=== PATIENT | female | born 1950 | race Caucasian/White ===

== ENCOUNTER → 2017-05-17 | Outpatient (CLI) | payer OTHER, MEDICARE ==
[~2017-05-17] MED LIST: ASPIRIN325 PO; CARDIZEM CD 18180 M3; CEFDINIR300 MG; DILTIAZEM 24HR240 MG PO; GLUCOSAMIN-CHO1 EACH PO; LEVOFLOXACIN750 MG PO; METOPROLOL; MUCUS DM 600-31 EACH PO; MULTIVITAMINS1 EAC7 PO; PREDNISONE 10 M10 MG PO; PREMPRO 0.3 MG1 EACH PO; PROPAFENONE 15150 MG PO; RED YEAST RICE600 MG PO; REQUIP 1 MG TABL1 M1 PO; SINGULAIR 10 MG10 M1 PO; TOPROL XL50 MG PO; ZYRTEC 10 MG TA10 M1 PO
== END ==
LOC: M.RAD 10:59
DX: Z12.31 Encounter for screening mammogram for malignant neoplasm of breast (principal)

== ENCOUNTER → 2020-09-04 | Outpatient (CLI) | payer OTHER | LOC: M.ULTRA 12:54 | PROVIDERS: ATTEND Family Medicine | DX: I83.93 Asymptomatic varicose veins of bilateral lower extremities (principal); M79.604 Pain in right leg ==

== ENCOUNTER → 2020-10-23 | Outpatient (CLI) | payer OTHER | LOC: M.CT 10-21 13:00 | PROVIDERS: ATTEND Family Medicine | DX: Z13.6 Encounter for screening for cardiovascular disorders (principal) ==